=== PATIENT | female | born 1935 | race Caucasian/White ===

== ENCOUNTER 2019-07-05 01:04 | Inpatient (IN) | payer MEDICARE, OTHER ==
[2019-07-05] MEDS: SUCCINYLCHOLINE CHLORIDE 100 MG/5 ML SYG IV (01:10)
[2019-07-05] MEDS: ETOMIDATE 20 MG INJ IV (01:10)
[2019-07-05 01:18] LABS: ADD MAN DIFF? NO
[2019-07-05] MEDS: PROPOFOL 100 ML IV ×5 (01:18→23:24)
[2019-07-05 01:21] LABS: BASOPHIL # 0.1 10^3/ul (0.0-0.1); BASOPHILS % 0.4 % (0.0-2.0); EOSINOPHILS # 0.4 10^3/ul (0.0-0.5); EOSINOPHILS % 2.8 % (0.0-7.0); HEMATOCRIT 40.1 % (37.0-47.0); HEMOGLOBIN 11.7 g/dl (12.0-16.0); LYMPHOCYTES # 2.4 10^3/ul (0.8-2.9); LYMPHOCYTES % 18.8 % (15.0-51.0); MEAN CORPUSCULAR HEMOGLOBIN 28.6 pg (29.0-33.0); MEAN CORPUSCULAR HGB CONC 29.2 g/dl (32.0-37.0); MONOCYTE # 0.9 10^3/ul (0.3-0.9); MONOCYTES % 6.7 % (0.0-11.0); NEUTROPHIL # 8.9 10^3/ul (1.6-7.5); NEUTROPHILS % 70.5 % (39.0-77.0); PLATELET COUNT 167 10^3/UL (140-415); RED BLOOD COUNT 4.09 10^6/ul (4.20-5.40); RED CELL DISTRIBUTION WIDTH 13.8 % (11.5-14.5)
[2019-07-05 01:21] LABS: WHITE BLOOD COUNT 12.7 10^3/ul (4.8-10.8)
[2019-07-05 01:39] LABS: ALANINE AMINOTRANSFERASE 19 IU/L (13-69); ALBUMIN 4.5 g/dl (3.3-4.9); ALBUMIN/GLOBULIN RATIO 1.07; ALKALINE PHOSPHATASE 69 IU/L (42-121); ASPARTATE AMINO TRANSFERASE 26 IU/L (15-46); BILIRUBIN,INDIRECT 0.6 mg/dl (0-1.1); BILIRUBIN,TOTAL 0.6 mg/dl (0.2-1.3); BLOOD UREA NITROGEN 19 mg/dl (7-20); CALCIUM 9.5 mg/dl (8.4-10.2); CHLORIDE 77 mmol/L (97-110); CREATININE 0.61 mg/dl (0.44-1.00); GLUCOSE 174 mg/dl (70-220); POTASSIUM 4.9 mmol/L (3.5-5.1); SODIUM 135 mmol/L (135-144); TOTAL PROTEIN 8.7 g/dl (6.1-8.1)
[2019-07-05 01:40] LABS: ADD UMIC YES; INR 0.89; PARTIAL THROMBOPLASTIN TIME 25.8 Sec (23.0-35.0); PROTIME 12.1 Sec (11.9-14.9); PT RATIO 0.9; UR ASCORBIC ACID NEGATIVE (NEGATIVE); UR BACTERIA FEW /HPF (NONE SEEN); UR BILIRUBIN (Dip) NEGATIVE (NEGATIVE); UR BLOOD (Dip) 2+ mg/dL (NEGATIVE); UR CLARITY CLEAR (CLEAR); UR COLOR COLORLESS (YELLOW); UR GLUCOSE (Dip) NEGATIVE (NEGATIVE); UR KETONES (Dip) NEGATIVE (NEGATIVE); UR LEUKOCYTE ESTERASE (Dip) NEGATIVE Leu/ul (NEGATIVE); UR NITRITE (Dip) NEGATIVE (NEGATIVE); UR RBC 12 /HPF (0-5); UR SPECIFIC GRAVITY (Dip) 1.004 (1.003-1.030); UR TOTAL PROTEIN (Dip) 1+ mg/dl (NEGATIVE); UR UROBILINOGEN (Dip) NEGATIVE (NEGATIVE); UR WBC 1 /HPF (0-5)
[2019-07-05 01:47] LABS: ANION GAP 7 (5-13); CARBON DIOXIDE 51 mmol/L (21-31)
[2019-07-05 01:50] LABS: B-TYPE NATRIURETIC PEPTIDE 326 PG/ML (0-450)
[2019-07-05 01:56] LABS: AADO2 Arterial 240.9 mmHg (7.0-24.0); Arterial Base Excess 18.2 mmol/L (-3.0-3); Arterial Blood Gas Oxygen Sat 99.7 mmHG (95.0-100.0); Arterial COHb 0.4 % (0.0-3.0); Arterial Fraction of Oxyhgb 98.9 % (93.0-99.0); Arterial HCO3 43.7 mmol/L (22.0-26.0); Arterial MetHb 0.4 % (0.0-1.5); Arterial pCO2 54.6 mmhg (35-45); MODE VENT - AC; Site Right Brachial
[2019-07-05] MEDS: FENTAnyl (DRIP) 1000 mcg/100mL 100 ML IV ×2 (01:56→12:54)
[2019-07-05] MEDS ORDERED: LORAZEPAM 2 MG INJ (02:35)
[2019-07-05] MEDS: LORAZEPAM 2 MG INJ IV (02:38)
[2019-07-05] MEDS: DEXAMETHASONE 10 MG/ML 1 ML INJ IV (03:14)
[2019-07-05] MEDS: SODIUM CHLORIDE 0.9% 1L BAG IV* (03:45)
[2019-07-05 04:29] LABS: LACTIC ACID 3.2 mmol/L (0.5-2.0)
[2019-07-05] MEDS: ACETAMINOPHEN 650 MG SUPP PR (05:08)
[2019-07-05] MEDS ORDERED: ALBUTEROL HFA 8 GM INHALER INH (05:30)
[2019-07-05] MEDS ORDERED: ONDANSETRON 4 MG INJ IV (05:30)
[2019-07-05] MEDS ORDERED: IPRATROPIUM (HFA) 12.9 GM INHALER INH (05:30)
[2019-07-05] MEDS ORDERED: MIDAZOLAM (DRIP) 50 mg/50 mL 50 ML IV (06:30)
[2019-07-05] MEDS: PANTOPRAZOLE 40 MG INJ IV (06:40)
[2019-07-05] MEDS: DEXTROSE 5%-0.45% NACL 1,000 ML IV ×2 (06:41→15:05)
[2019-07-05 07:08] LABS: LACTIC ACID 2.3 mmol/L (0.5-2.0)
[2019-07-05 07:12] LABS: HEMOGLOBIN A1C 5.3 % (0-5.9)
[2019-07-05] MEDS: TIOTROPIUM 18 MCG CAPSULE INHA DEV INH (08:17)
[2019-07-05] MEDS: ENOXAPARIN 40 MG/0.4 ML SYG SC (08:24)
[2019-07-05] MEDS: METHYLPREDNISOLONE 125 MG INJ IV (08:25)
[2019-07-05] MEDS: CEFTRIAXONE 1 GM/50 ML (PMX) 50 ML IVPB (08:25)
[2019-07-05] MEDS: ASPIRIN 81 MG TAB PO (08:25)
[2019-07-05] MEDS: EZETIMIBE 10 MG TAB PO (08:25)
[2019-07-05] MEDS: RIVASTIGMINE 4.6MG/24H PATCH TRANSDERM (08:30)
[2019-07-05] MEDS: AZITHROMYCIN 500MG/NS (PMX) 250 ML IVPB (10:00)
[2019-07-06] MEDS: FENTAnyl (DRIP) 1000 mcg/100mL 100 ML IV (02:38)
[2019-07-06] MEDS: DEXTROSE 5%-0.45% NACL 1,000 ML IV ×2 (04:19→11:05)
[2019-07-06] MEDS: PANTOPRAZOLE 40 MG INJ IV (04:22)
[2019-07-06 06:02] LABS: ADD MAN DIFF? NO
[2019-07-06 06:12] LABS: WHITE BLOOD COUNT 9.9 10^3/ul (4.8-10.8)
[2019-07-06 06:12] LABS: BASOPHILS % 0.1 % (0.0-2.0); EOSINOPHILS # 0.1 10^3/ul (0.0-0.5); HEMATOCRIT 31.5 % (37.0-47.0); HEMOGLOBIN 9.8 g/dl (12.0-16.0); LYMPHOCYTES # 1.5 10^3/ul (0.8-2.9); LYMPHOCYTES % 14.7 % (15.0-51.0); MEAN CORPUSCULAR HEMOGLOBIN 28.8 pg (29.0-33.0); MEAN CORPUSCULAR HGB CONC 31.1 g/dl (32.0-37.0); MEAN CORPUSCULAR VOLUME 92.6 fl (82.0-101.0); MEAN PLATELET VOLUME 10.4 fl (7.4-10.4); MONOCYTE # 0.8 10^3/ul (0.3-0.9); MONOCYTES % 7.9 % (0.0-11.0); NEUTROPHIL # 7.5 10^3/ul (1.6-7.5); NEUTROPHILS % 75.5 % (39.0-77.0); PLATELET COUNT 137 10^3/UL (140-415)
[2019-07-06 06:19] LABS: POSITIVE DIFF @See below
[2019-07-06 06:39] LABS: ALANINE AMINOTRANSFERASE 16 IU/L (13-69); ALBUMIN 3.1 g/dl (3.3-4.9); ALBUMIN/GLOBULIN RATIO 1.03; ALKALINE PHOSPHATASE 42 IU/L (42-121); ANION GAP 4 (5-13); ASPARTATE AMINO TRANSFERASE 30 IU/L (15-46); BILIRUBIN,INDIRECT 0.6 mg/dl (0-1.1); BILIRUBIN,TOTAL 0.6 mg/dl (0.2-1.3); BLOOD UREA NITROGEN 20 mg/dl (7-20); CALCIUM 8.5 mg/dl (8.4-10.2); CARBON DIOXIDE 38 mmol/L (21-31); CHLORIDE 88 mmol/L (97-110); CREATININE 0.55 mg/dl (0.44-1.00); GLUCOSE 138 mg/dl (70-220); POTASSIUM 3.4 mmol/L (3.5-5.1); SODIUM 130 mmol/L (135-144); TOTAL PROTEIN 6.1 g/dl (6.1-8.1)
[2019-07-06] MEDS: TIOTROPIUM 18 MCG CAPSULE INHA DEV INH (09:00)
[2019-07-06] MEDS: ASPIRIN 81 MG TAB PO (09:58)
[2019-07-06] MEDS: CEFTRIAXONE 1 GM/50 ML (PMX) 50 ML IVPB (09:58)
[2019-07-06] MEDS: PROPOFOL 100 ML IV ×2 (09:58→20:20)
[2019-07-06] MEDS: RIVASTIGMINE 4.6MG/24H PATCH TRANSDERM (09:59)
[2019-07-06] MEDS: ENOXAPARIN 40 MG/0.4 ML SYG SC (10:01)
[2019-07-06] MEDS: METHYLPREDNISOLONE 125 MG INJ IV (10:02)
[2019-07-06] MEDS: AZITHROMYCIN 500MG/NS (PMX) 250 ML IVPB (10:21)
[2019-07-06] MEDS: ALBUMIN HUMAN 25% 100 ML IV ×2 (10:21→18:37)
[2019-07-07] MEDS: POTASSIUM CHLORIDE 100 ML IVPB ×2 (01:04→03:53)
[2019-07-07] MEDS: PROPOFOL 100 ML IV ×5 (02:20→20:15)
[2019-07-07] MEDS: ALBUMIN HUMAN 25% 100 ML IV (03:04)
[2019-07-07] MEDS: FENTAnyl (DRIP) 1000 mcg/100mL 100 ML IV (04:41)
[2019-07-07] MEDS: PANTOPRAZOLE 40 MG INJ IV (05:23)
[2019-07-07 06:06] LABS: Allen Test ACCEPTAB; Arterial Blood Gas Oxygen Sat 97.3 mmHG (95.0-100.0); Arterial COHb 0.3 % (0.0-3.0); Arterial Fraction of Oxyhgb 96.8 % (93.0-99.0); Arterial HCO3 29.8 mmol/L (22.0-26.0); Arterial MetHb 0.2 % (0.0-1.5); Arterial pCO2 35.3 mmhg (35-45); MODE VENT - AC; Site Left Radial
[2019-07-07 06:17] LABS: ADD MAN DIFF? NO
[2019-07-07 06:23] LABS: WHITE BLOOD COUNT 7.6 10^3/ul (4.8-10.8)
[2019-07-07 06:23] LABS: EOSINOPHILS % 0.3 % (0.0-7.0); HEMATOCRIT 27.8 % (37.0-47.0); HEMOGLOBIN 8.9 g/dl (12.0-16.0); LYMPHOCYTES # 0.9 10^3/ul (0.8-2.9); LYMPHOCYTES % 11.5 % (15.0-51.0); MEAN CORPUSCULAR HEMOGLOBIN 28.4 pg (29.0-33.0); MEAN CORPUSCULAR VOLUME 88.8 fl (82.0-101.0); MEAN PLATELET VOLUME 10.7 fl (7.4-10.4); MONOCYTE # 0.5 10^3/ul (0.3-0.9); MONOCYTES % 6.7 % (0.0-11.0); NEUTROPHIL # 6.2 10^3/ul (1.6-7.5); NEUTROPHILS % 81.2 % (39.0-77.0); PLATELET COUNT 153 10^3/UL (140-415); RED BLOOD COUNT 3.13 10^6/ul (4.20-5.40); RED CELL DISTRIBUTION WIDTH 14.3 % (11.5-14.5)
[2019-07-07 06:43] LABS: AMYLASE 50 U/L (11-123)
[2019-07-07 06:47] LABS: ALANINE AMINOTRANSFERASE 16 IU/L (13-69); ALBUMIN 3.6 g/dl (3.3-4.9); ALBUMIN/GLOBULIN RATIO 1.24; ALKALINE PHOSPHATASE 42 IU/L (42-121); ANION GAP 5 (5-13); ASPARTATE AMINO TRANSFERASE 25 IU/L (15-46); BILIRUBIN,INDIRECT 0.3 mg/dl (0-1.1); BILIRUBIN,TOTAL 0.3 mg/dl (0.2-1.3); BLOOD UREA NITROGEN 19 mg/dl (7-20); CALCIUM 9.2 mg/dl (8.4-10.2); CARBON DIOXIDE 35 mmol/L (21-31); CHLORIDE 94 mmol/L (97-110); CREATININE 0.59 mg/dl (0.44-1.00); GLUCOSE 157 mg/dl (70-220); MAGNESIUM 1.8 mg/dl (1.7-2.5); POTASSIUM 3.9 mmol/L (3.5-5.1); SODIUM 134 mmol/L (135-144); TOTAL PROTEIN 6.5 g/dl (6.1-8.1)
[2019-07-07 06:48] LABS: LACTIC ACID 1.1 mmol/L (0.5-2.0)
[2019-07-07 07:01] LABS: IRON 23 ug/dl (35-150)
[2019-07-07 07:13] LABS: % IRON SATURATION 11 % SAT (22-52); TOTAL IRON BINDING CAPACITY 205 ug/dl (241-421)
[2019-07-07 07:17] LABS: THYROID STIMULATING HORMONE 0.631 MIU/L (0.465-4.680)
[2019-07-07 07:26] LABS: D-DIMER 1757.49 ng/ml (<460)
[2019-07-07] MEDS: RIVASTIGMINE 4.6MG/24H PATCH TRANSDERM (08:12)
[2019-07-07] MEDS: SODIUM CHLORIDE 1 GM TAB PO ×3 (08:12→20:14)
[2019-07-07] MEDS: ASPIRIN 81 MG TAB PO (08:12)
[2019-07-07] MEDS: CEFTRIAXONE 1 GM/50 ML (PMX) 50 ML IVPB (08:13)
[2019-07-07] MEDS: ENOXAPARIN 40 MG/0.4 ML SYG SC (08:20)
[2019-07-07] MEDS: AZITHROMYCIN 500MG/NS (PMX) 250 ML IVPB (08:55)
[2019-07-07] MEDS: TIOTROPIUM 18 MCG CAPSULE INHA DEV INH (09:00)
[2019-07-07] MEDS: METHYLPREDNISOLONE 125 MG INJ IV (10:02)
[2019-07-07] MEDS: FUROSEMIDE 20 MG INJ IV (12:27)
[2019-07-07] MEDS ORDERED: COLLAGENASE 5 GM (UD JAR) TOP (16:00)
[2019-07-07 20:10] LABS: FREE T4 (FREE THYROXINE) 1.49 ng/dl (0.85-1.93)
[2019-07-07] MEDS: COLLAGENASE 5 GM (UD JAR) TOP (20:14)
[2019-07-08] MEDS: PROPOFOL 100 ML IV ×2 (00:10→03:58)
[2019-07-08 01:50] LABS: TROPONIN-I < 0.012 ng/ml (0.000-0.120)
[2019-07-08 05:13] LABS: ADD MAN DIFF? NO
[2019-07-08 05:27] LABS: BASOPHILS % 0.1 % (0.0-2.0); EOSINOPHILS % 0.3 % (0.0-7.0); HEMATOCRIT 27.7 % (37.0-47.0); HEMOGLOBIN 8.7 g/dl (12.0-16.0); LYMPHOCYTES # 0.9 10^3/ul (0.8-2.9); LYMPHOCYTES % 12.3 % (15.0-51.0); MEAN CORPUSCULAR HEMOGLOBIN 28.8 pg (29.0-33.0); MEAN CORPUSCULAR HGB CONC 31.4 g/dl (32.0-37.0); MEAN CORPUSCULAR VOLUME 91.7 fl (82.0-101.0); MEAN PLATELET VOLUME 11.2 fl (7.4-10.4); MONOCYTE # 0.6 10^3/ul (0.3-0.9); MONOCYTES % 7.7 % (0.0-11.0); NEUTROPHIL # 5.8 10^3/ul (1.6-7.5); NEUTROPHILS % 79.3 % (39.0-77.0); PLATELET COUNT 186 10^3/UL (140-415); RED BLOOD COUNT 3.02 10^6/ul (4.20-5.40); RED CELL DISTRIBUTION WIDTH 14.5 % (11.5-14.5)
[2019-07-08 05:27] LABS: WHITE BLOOD COUNT 7.3 10^3/ul (4.8-10.8)
[2019-07-08 05:53] LABS: ANION GAP 8 (5-13); BLOOD UREA NITROGEN 25 mg/dl (7-20); CALCIUM 8.8 mg/dl (8.4-10.2); CARBON DIOXIDE 34 mmol/L (21-31); CHLORIDE 95 mmol/L (97-110); CREATININE 0.54 mg/dl (0.44-1.00); GLUCOSE 135 mg/dl (70-220); POTASSIUM 3.6 mmol/L (3.5-5.1); SODIUM 137 mmol/L (135-144)
[2019-07-08] MEDS: PANTOPRAZOLE 40 MG INJ IV (06:00)
[2019-07-08] MEDS: FUROSEMIDE 20 MG INJ IV ×3 (06:00→12:49)
[2019-07-08 06:01] LABS: TROPONIN-I < 0.012 ng/ml (0.000-0.120)
[2019-07-08] MEDS: SODIUM CHLORIDE 1 GM TAB PO ×3 (08:03→21:30)
[2019-07-08] MEDS: CEFTRIAXONE 1 GM/50 ML (PMX) 50 ML IVPB (08:03)
[2019-07-08] MEDS: ASPIRIN 81 MG TAB PO (08:03)
[2019-07-08] MEDS: RIVASTIGMINE 4.6MG/24H PATCH TRANSDERM (08:03)
[2019-07-08] MEDS: ENOXAPARIN 40 MG/0.4 ML SYG SC (08:09)
[2019-07-08] MEDS: TIOTROPIUM 18 MCG CAPSULE INHA DEV INH (08:10)
[2019-07-08] MEDS: AZITHROMYCIN 500MG/NS (PMX) 250 ML IVPB (08:46)
[2019-07-08] MEDS: METHYLPREDNISOLONE 40 MG INJ IV (10:01)
[2019-07-08 11:21] LABS: AADO2 Arterial 79.5 mmHg (7.0-24.0); Allen Test ACCEPTAB; Arterial Base Excess 5.6 mmol/L (-3.0-3); Arterial Blood Gas Oxygen Sat 92.3 mmHG (95.0-100.0); Arterial COHb 0.3 % (0.0-3.0); Arterial Fraction of Oxyhgb 91.7 % (93.0-99.0); Arterial HCO3 32.1 mmol/L (22.0-26.0); Arterial MetHb 0.4 % (0.0-1.5); Arterial pCO2 56.2 mmhg (35-45); Blood Gas PS 10; MODE VENT - CPAP; Site Right Radial
[2019-07-08 12:35] LABS: TROPONIN-I < 0.012 ng/ml (0.000-0.120)
[2019-07-08] MEDS: ALBUMIN HUMAN 25% 100 ML IV ×3 (14:40→21:33)
[2019-07-08 20:30] LABS: TROPONIN-I 0.018 ng/ml (0.000-0.120)
[2019-07-08] MEDS: COLLAGENASE 5 GM (UD JAR) TOP (21:29)
[2019-07-09 04:53] LABS: ADD MAN DIFF? NO
[2019-07-09 04:58] LABS: AADO2 Arterial 98.6 mmHg (7.0-24.0); Allen Test ACCEPTAB; Arterial Base Excess 9.9 mmol/L (-3.0-3); Arterial Blood Gas Oxygen Sat 92.6 mmHG (95.0-100.0); Arterial COHb 0.1 % (0.0-3.0); Arterial Fraction of Oxyhgb 92.2 % (93.0-99.0); Arterial HCO3 36.6 mmol/L (22.0-26.0); Arterial MetHb 0.3 % (0.0-1.5); Arterial pCO2 60.7 mmhg (35-45); MODE NASAL CANNULA; Site Right Radial
[2019-07-09 04:59] LABS: BASOPHILS % 0.1 % (0.0-2.0); EOSINOPHILS # 0.1 10^3/ul (0.0-0.5); EOSINOPHILS % 0.6 % (0.0-7.0); HEMATOCRIT 31.3 % (37.0-47.0); HEMOGLOBIN 9.5 g/dl (12.0-16.0); LYMPHOCYTES # 1.4 10^3/ul (0.8-2.9); LYMPHOCYTES % 14.3 % (15.0-51.0); MEAN CORPUSCULAR HEMOGLOBIN 28.6 pg (29.0-33.0); MEAN CORPUSCULAR HGB CONC 30.4 g/dl (32.0-37.0); MEAN CORPUSCULAR VOLUME 94.3 fl (82.0-101.0); MEAN PLATELET VOLUME 10.9 fl (7.4-10.4); MONOCYTES % 10.3 % (0.0-11.0); NEUTROPHIL # 7.1 10^3/ul (1.6-7.5); NEUTROPHILS % 74.4 % (39.0-77.0); PLATELET COUNT 218 10^3/UL (140-415); RED BLOOD COUNT 3.32 10^6/ul (4.20-5.40); RED CELL DISTRIBUTION WIDTH 14.4 % (11.5-14.5)
[2019-07-09 04:59] LABS: WHITE BLOOD COUNT 9.5 10^3/ul (4.8-10.8)
[2019-07-09] MEDS: PANTOPRAZOLE 40 MG INJ IV (05:07)
[2019-07-09] MEDS: ALBUMIN HUMAN 25% 100 ML IV (05:08)
[2019-07-09] MEDS: FUROSEMIDE 20 MG INJ IV (05:08)
[2019-07-09 05:23] LABS: BLOOD UREA NITROGEN 28 mg/dl (7-20); CALCIUM 9.1 mg/dl (8.4-10.2); CHLORIDE 96 mmol/L (97-110); CREATININE 0.68 mg/dl (0.44-1.00); GLUCOSE 93 mg/dl (70-220); POTASSIUM 3.2 mmol/L (3.5-5.1); SODIUM 144 mmol/L (135-144)
[2019-07-09 05:30] LABS: ANION GAP 8 (5-13); CARBON DIOXIDE 40 mmol/L (21-31)
[2019-07-09] MEDS: SODIUM CHLORIDE 1 GM TAB PO (09:00)
[2019-07-09] MEDS: BENAZEPRIL 5 MG TAB PO ×2 (09:24→10:51)
[2019-07-09] MEDS: ASPIRIN 81 MG TAB PO (09:24)
[2019-07-09] MEDS: CEFTRIAXONE 1 GM/50 ML (PMX) 50 ML IVPB (09:25)
[2019-07-09] MEDS: RIVASTIGMINE 4.6MG/24H PATCH TRANSDERM (09:26)
[2019-07-09] MEDS: POTASSIUM CHLORIDE 20 MEQ POWDER FOR ORAL SOLN GTB (09:29)
[2019-07-09] MEDS: PROPOFOL 100 ML IV (09:30)
[2019-07-09] MEDS: ENOXAPARIN 40 MG/0.4 ML SYG SC (09:36)
[2019-07-09] MEDS: METHYLPREDNISOLONE 40 MG INJ IV (09:40)
[2019-07-09] MEDS: AZITHROMYCIN 500MG/NS (PMX) 250 ML IVPB (10:49)
[2019-07-09] MEDS: COLLAGENASE 5 GM (UD JAR) TOP (21:22)
[2019-07-10] MEDS: CLONIDINE 0.2 MG/24 HR PATCH TRANSDERM (01:30)
[2019-07-10] MEDS: FUROSEMIDE 20 MG INJ IV (05:41)
[2019-07-10] MEDS: FAMOTIDINE 20 MG INJ IV (09:23)
[2019-07-10] MEDS: CEFTRIAXONE 1 GM/50 ML (PMX) 50 ML IVPB (09:23)
[2019-07-10] MEDS: AZITHROMYCIN 500MG/NS (PMX) 250 ML IVPB (09:24)
[2019-07-10] MEDS: TIOTROPIUM 18 MCG CAPSULE INHA DEV INH (09:24)
[2019-07-10] MEDS: RIVASTIGMINE 4.6MG/24H PATCH TRANSDERM (09:24)
[2019-07-10] MEDS: ASPIRIN 81 MG TAB PO (09:25)
[2019-07-10] MEDS: BENAZEPRIL 10 MG TAB PO (09:25)
[2019-07-10] MEDS: ENOXAPARIN 40 MG/0.4 ML SYG SC (09:27)
[2019-07-10] MEDS: POTASSIUM CHLORIDE (SR) 10 MEQ TAB PO (09:28)
[2019-07-10 09:54] LABS: PROCALCITONIN 0.09 ng/mL (0.00-0.10)
[2019-07-10] MEDS ORDERED: BISACODYL 10 MG SUPP PR (12:00)
[2019-07-10] MEDS: COLLAGENASE 5 GM (UD JAR) TOP (20:31)
[2019-07-11 05:24] LABS: ADD MAN DIFF? NO
[2019-07-11] MEDS: FUROSEMIDE 20 MG INJ IV (05:25)
[2019-07-11 05:35] LABS: BASOPHILS % 0.4 % (0.0-2.0); EOSINOPHILS # 0.5 10^3/ul (0.0-0.5); EOSINOPHILS % 5.2 % (0.0-7.0); HEMATOCRIT 38.4 % (37.0-47.0); HEMOGLOBIN 11.3 g/dl (12.0-16.0); LYMPHOCYTES # 2.3 10^3/ul (0.8-2.9); LYMPHOCYTES % 24.9 % (15.0-51.0); MEAN CORPUSCULAR HEMOGLOBIN 28.4 pg (29.0-33.0); MEAN CORPUSCULAR HGB CONC 29.4 g/dl (32.0-37.0); MEAN CORPUSCULAR VOLUME 96.5 fl (82.0-101.0); MEAN PLATELET VOLUME 9.9 fl (7.4-10.4); MONOCYTE # 0.8 10^3/ul (0.3-0.9); MONOCYTES % 8.7 % (0.0-11.0); NEUTROPHIL # 5.5 10^3/ul (1.6-7.5); NEUTROPHILS % 60.3 % (39.0-77.0); PLATELET COUNT 275 10^3/UL (140-415); RED BLOOD COUNT 3.98 10^6/ul (4.20-5.40); RED CELL DISTRIBUTION WIDTH 13.5 % (11.5-14.5)
[2019-07-11 05:35] LABS: WHITE BLOOD COUNT 9.2 10^3/ul (4.8-10.8)
[2019-07-11 06:23] LABS: ALANINE AMINOTRANSFERASE 56 IU/L (13-69); ALBUMIN 3.8 g/dl (3.3-4.9); ALBUMIN/GLOBULIN RATIO 1.22; ALKALINE PHOSPHATASE 48 IU/L (42-121); ASPARTATE AMINO TRANSFERASE 42 IU/L (15-46); BILIRUBIN,INDIRECT 0.4 mg/dl (0-1.1); BILIRUBIN,TOTAL 0.4 mg/dl (0.2-1.3); BLOOD UREA NITROGEN 25 mg/dl (7-20); CALCIUM 9.5 mg/dl (8.4-10.2); CHLORIDE 87 mmol/L (97-110); CREATININE 0.55 mg/dl (0.44-1.00); GLUCOSE 95 mg/dl (70-220); POTASSIUM 4.2 mmol/L (3.5-5.1); SODIUM 140 mmol/L (135-144); TOTAL PROTEIN 6.9 g/dl (6.1-8.1)
[2019-07-11 06:53] LABS: ANION GAP 7 (5-13); CARBON DIOXIDE 46 mmol/L (21-31)
[2019-07-11] MEDS: FAMOTIDINE 20 MG INJ IV (09:29)
[2019-07-11] MEDS: RIVASTIGMINE 4.6MG/24H PATCH TRANSDERM (09:29)
[2019-07-11] MEDS: BENAZEPRIL 10 MG TAB PO (09:30)
[2019-07-11] MEDS: ASPIRIN 81 MG TAB PO (09:30)
[2019-07-11] MEDS: TIOTROPIUM 18 MCG CAPSULE INHA DEV INH (09:30)
[2019-07-11] MEDS: ENOXAPARIN 40 MG/0.4 ML SYG SC (09:32)
[2019-07-11] MEDS: COLLAGENASE 5 GM (UD JAR) TOP (21:00)
[2019-07-12] MEDS: FUROSEMIDE 20 MG INJ IV (05:51)
[2019-07-12 05:57] LABS: IRON 80 ug/dl (35-150)
[2019-07-12 06:05] LABS: ALANINE AMINOTRANSFERASE 44 IU/L (13-69); ALBUMIN 3.9 g/dl (3.3-4.9); ALBUMIN/GLOBULIN RATIO 1.25; ALKALINE PHOSPHATASE 53 IU/L (42-121); ASPARTATE AMINO TRANSFERASE 32 IU/L (15-46); BILIRUBIN,INDIRECT 0.5 mg/dl (0-1.1); BILIRUBIN,TOTAL 0.5 mg/dl (0.2-1.3); BLOOD UREA NITROGEN 29 mg/dl (7-20); CALCIUM 9.6 mg/dl (8.4-10.2); CHLORIDE 84 mmol/L (97-110); GLUCOSE 105 mg/dl (70-220); SODIUM 136 mmol/L (135-144)
[2019-07-12 06:10] LABS: % IRON SATURATION 31 % SAT (22-52); TOTAL IRON BINDING CAPACITY 257 ug/dl (241-421)
[2019-07-12 06:13] LABS: ANION GAP 6 (5-13); CARBON DIOXIDE 46 mmol/L (21-31)
[2019-07-12 06:24] LABS: MAGNESIUM 1.9 mg/dl (1.7-2.5)
[2019-07-12] MEDS: TIOTROPIUM 18 MCG CAPSULE INHA DEV INH (09:15)
[2019-07-12] MEDS: BENAZEPRIL 10 MG TAB PO (09:20)
[2019-07-12] MEDS: ASPIRIN 81 MG TAB PO (09:20)
[2019-07-12] MEDS: FAMOTIDINE 20 MG TAB PO (09:20)
[2019-07-12] MEDS: RIVASTIGMINE 4.6MG/24H PATCH TRANSDERM (09:22)
[2019-07-12] MEDS: ENOXAPARIN 40 MG/0.4 ML SYG SC (09:24)
[2019-07-12] MEDS: ACETAZOLAMIDE 250 MG TAB PO (14:21)
[2019-07-13] MEDS: FUROSEMIDE 20 MG TAB PO (08:59)
[2019-07-13] MEDS: FAMOTIDINE 20 MG TAB PO (08:59)
[2019-07-13] MEDS: BENAZEPRIL 10 MG TAB PO (08:59)
[2019-07-13] MEDS: ASPIRIN 81 MG TAB PO (08:59)
[2019-07-13] MEDS: TIOTROPIUM 18 MCG CAPSULE INHA DEV INH (09:00)
[2019-07-13] MEDS: RIVASTIGMINE 4.6MG/24H PATCH TRANSDERM (09:00)
[2019-07-13] MEDS: ENOXAPARIN 40 MG/0.4 ML SYG SC (09:02)
[2019-07-13] MEDS: ACETAMINOPHEN 650MG/20.3ML CUP PO (20:40)
[2019-07-14 06:00] LABS: ADD MAN DIFF? NO
[2019-07-14 06:04] LABS: BASOPHILS % 0.6 % (0.0-2.0); EOSINOPHILS # 0.4 10^3/ul (0.0-0.5); HEMATOCRIT 36.1 % (37.0-47.0); HEMOGLOBIN 10.8 g/dl (12.0-16.0); LYMPHOCYTES # 2.2 10^3/ul (0.8-2.9); LYMPHOCYTES % 30.4 % (15.0-51.0); MEAN CORPUSCULAR HEMOGLOBIN 27.9 pg (29.0-33.0); MEAN CORPUSCULAR HGB CONC 29.9 g/dl (32.0-37.0); MEAN CORPUSCULAR VOLUME 93.3 fl (82.0-101.0); MEAN PLATELET VOLUME 9.8 fl (7.4-10.4); MONOCYTE # 0.7 10^3/ul (0.3-0.9); MONOCYTES % 9.8 % (0.0-11.0); NEUTROPHIL # 3.9 10^3/ul (1.6-7.5); NEUTROPHILS % 53.6 % (39.0-77.0); PLATELET COUNT 311 10^3/UL (140-415); RED BLOOD COUNT 3.87 10^6/ul (4.20-5.40); RED CELL DISTRIBUTION WIDTH 13.5 % (11.5-14.5)
[2019-07-14 06:04] LABS: WHITE BLOOD COUNT 7.2 10^3/ul (4.8-10.8)
[2019-07-14 06:43] LABS: ALANINE AMINOTRANSFERASE 31 IU/L (13-69); ALBUMIN 3.5 g/dl (3.3-4.9); ALBUMIN/GLOBULIN RATIO 1.12; ALKALINE PHOSPHATASE 48 IU/L (42-121); ASPARTATE AMINO TRANSFERASE 23 IU/L (15-46); BILIRUBIN,INDIRECT 0.4 mg/dl (0-1.1); BILIRUBIN,TOTAL 0.4 mg/dl (0.2-1.3); BLOOD UREA NITROGEN 37 mg/dl (7-20); CALCIUM 9.5 mg/dl (8.4-10.2); CHLORIDE 87 mmol/L (97-110); CREATININE 0.99 mg/dl (0.44-1.00); GLUCOSE 117 mg/dl (70-220); POTASSIUM 4.1 mmol/L (3.5-5.1); SODIUM 136 mmol/L (135-144); TOTAL PROTEIN 6.6 g/dl (6.1-8.1)
[2019-07-14 06:52] LABS: ANION GAP 5 (5-13)
[2019-07-14 06:57] LABS: CARBON DIOXIDE 44 mmol/L (21-31)
[2019-07-14] MEDS: ASPIRIN 81 MG TAB PO (09:33)
[2019-07-14] MEDS: FAMOTIDINE 20 MG TAB PO (09:33)
[2019-07-14] MEDS: BENAZEPRIL 10 MG TAB PO (09:33)
[2019-07-14] MEDS: FUROSEMIDE 20 MG TAB PO (09:33)
[2019-07-14] MEDS: TIOTROPIUM 18 MCG CAPSULE INHA DEV INH (09:34)
[2019-07-14] MEDS: ENOXAPARIN 40 MG/0.4 ML SYG SC (09:35)
[2019-07-14] MEDS: RIVASTIGMINE 4.6MG/24H PATCH TRANSDERM (09:35)
== END 2019-07-14 16:20 | disposition home or self-care (01) ==
LOC: E/R 01:04 → MS3 07-09 15:38 → ICU 02:43
PROVIDERS: Internal Medicine
PROC: 0BH17EZ Insertion of Endotracheal Airway into Trachea, Via Natural or Artificial Opening (ICD-10-PCS; principal; 2019-07-05)
PROC: 5A1945Z Respiratory Ventilation, 24-96 Consecutive Hours (ICD-10-PCS; 2019-07-05)
PROC: 3E0F7GC Introduction of Other Therapeutic Substance into Respiratory Tract, Via Natural or Artificial Opening (ICD-10-PCS; 2019-07-08)
DX: A41.9 Sepsis, unspecified organism (principal); J96.01 Acute respiratory failure with hypoxia; J96.02 Acute respiratory failure with hypercapnia; E87.1 Hypo-osmolality and hyponatremia; Z99.81 Dependence on supplemental oxygen; D69.6 Thrombocytopenia, unspecified; I73.9 Peripheral vascular disease, unspecified; F03.90 Unspecified dementia, unspecified severity, without behavioral disturbance, psychotic disturbance, mood disturbance, and anxiety; I10 Essential (primary) hypertension; E87.6 Hypokalemia; D50.9 Iron deficiency anemia, unspecified; E78.5 Hyperlipidemia, unspecified; R32 Unspecified urinary incontinence; I89.0 Lymphedema, not elsewhere classified; M81.0 Age-related osteoporosis without current pathological fracture; Z79.82 Long term (current) use of aspirin; Z86.711 Personal history of pulmonary embolism
CPT/HCPCS: 31500; 36415; 36573; 36600; 71045; 80048; 80053; 81001; 82150; 82803; 83036; 83540; 83605; 83735; 83880; 84145; 84439; 84443; 84484; 85025; 85378; 85610; 85730; 87040-91; 87081; 87086; 92526; 92610; 93005; 93306; 94002; 94003; 94770; 96374; 96375; 97110; 97162; 97530; 99291-25